=== PATIENT | female | born 1955 ===

== ENCOUNTER 2021-09-04 05:59 | Day surgery (SDC) | payer OTHER | END 2021-09-04 12:30 | disposition home or self-care (01) | LOC: AMB-ENDOS 05:59 → CIR.AMB 11:15 → EDBD 11:15 → AMB-ENDOS 12:30 | PROVIDERS: ATTEND Colon & Rectal Surgery | DX: D12.5 Benign neoplasm of sigmoid colon (principal); Z20.822 Contact with and (suspected) exposure to COVID-19; I10 Essential (primary) hypertension ==

== ENCOUNTER 2021-11-19 10:00 | Inpatient (IN) | payer OTHER ==
[~2021-11-19] VITALS: Ht 170.2 cm; Wt 74.8 kg
[2021-11-19] MEDS ORDERED: ATORVASTATIN CA20 MG PO (13:47)
[2021-11-19] MEDS ORDERED: GABAPE PO (13:47)
[2021-11-19] MEDS ORDERED: IBU800 MG PO (13:47)
[2021-11-19] MEDS ORDERED: BAYER THERAPY325 MG PO (13:48)
[2021-11-19] MEDS ORDERED: LEVOTHY PO (13:49)
[2021-11-19] MEDS ORDERED: PANTOPRAZOLE PO (13:49)
[2021-11-19] MEDS ORDERED: CALCIUM PO (13:49)
[2021-11-22] MEDS ORDERED: GABAPENTIN800 M1 (11:34)
[2021-11-22] MEDS ORDERED: CALCIUM500 M1 (11:35)
[2021-11-22] MEDS ORDERED: PANTOPRAZOLE SO40 MG (11:35)
[2021-11-22] MEDS ORDERED: LEVOTHYROXINE25 MC1 (11:35)
== END 2021-11-25 10:42 | disposition home or self-care (01) | DRG 331 ==
LOC: O/R 11-22 05:46 → SURH 11-22 05:46 → SURG 11-22 07:00 → SURH 11-22 12:57
PROVIDERS: ADMIT Colon & Rectal Surgery; ATTEND Colon & Rectal Surgery
PROC: 07BB4ZZ Excision of Mesenteric Lymphatic, Percutaneous Endoscopic Approach (ICD-10-PCS; 2021-11-22)
PROC: 0DTF4ZZ Resection of Right Large Intestine, Percutaneous Endoscopic Approach (ICD-10-PCS; principal; 2021-11-22 07:00)
DX: K63.5 Polyp of colon (principal); R59.0 Localized enlarged lymph nodes; Z20.822 Contact with and (suspected) exposure to COVID-19; I10 Essential (primary) hypertension